=== PATIENT | female | born 1965 | race Caucasian/White ===

== ENCOUNTER 2016-12-25 07:17 | Observation (INO) | payer MEDICAID, OTHER ==
[2016-12-25 07:24] VITALS: O2SAT 100
--- NOTE | 2016-12-25 07:41 | C.PDOC ---
History Of Present Illness 51 y/o female brought in by EMS presents to the ED with complains of recurring dizziness, nausea, vomiting, diarrhea for the past several days. Vomiting increases with dizziness. Pt reports similar prior episodes but this time is "now more frequent than before." Multiple prior ER visits for the same, patient states has not been able to follow up due to lack of insurance. Denies fever, chills. Also complains of epigastric pain and headache. VIA TRANS RECUR DIZZY, NVD X SEV DAYS. SIM TO PRIOR EPISODES BUT "NOW MORE FREQUENT THAN BEFORE". MULT PRIOR ER VISITS FOR SAME, STATES HAS NOT BEEN ABLE TO FU DUE TO LACK OF INSURANCE. NO FEVER. CO EPIG PAIN, [place]. VOMITING WORSE W DIZZINESS. EXAM NONTOXIC MID DIST NO NYSTAGMUS LUNGS CTA B/L NO W/R/R ABD SOFT NT ND NO R/G NEURO INTACT SKIN GOOD TURGOR Time Seen by Provider: 12/25/16 07:36 Chief Complaint (Nursing): Dizziness/Lightheaded History Per: Patient History/Exam Limitations: no limitations Onset/Duration Of Symptoms: Days Current Symptoms Are (Timing): Still Present Fall Associated With With Symptoms: No Severity: Moderate Recent travel outside of the [place]: No - Symptoms Of CVA Recent Head Trauma: No Past Medical History Reviewed: Historical Data, Nursing Documentation, Vital Signs Vital Signs: Last Vital Signs Temp 98 F 12/25/16 07:23 Pulse 84 12/25/16 07:23 Resp 20 12/25/16 07:23 BP 106/77 12/25/16 07:23 Pulse Ox 100 12/25/16 10:02 - Medical History PMH: HTN Surgical History: Hernia Repair Family History: States: Unknown Family Hx - Social History Hx Tobacco Use: Yes (1 ppd) Hx Alcohol Use: No Hx Substance Use: No - Immunization History Hx Tetanus Toxoid Vaccination: No Hx Influenza Vaccination: No Hx Pneumococcal Vaccination: No Review Of Systems Except As Marked, All Systems Reviewed And Found Negative. Constitutional: Negative for: Fever, Chills Gastrointestinal: Positive for: Nausea, Vomiting, Abdominal Pain, Diarrhea Neurological: Positive for: Headache, Dizziness Physical Exam - Physical Exam Appears: Non-toxic, In Acute Distress (mild) Skin: Warm, Dry, No Rash, Other (good turgor) Head: Atraumatic, Normacephalic Eye(s): bilateral: Other (no nystagmus) Oral Mucosa: Moist Neck: Normal, Normal ROM, Supple Chest: Symmetrical Cardiovascular: Rhythm Regular, No Murmur Respiratory: Normal Breath Sounds, No Rales, No Rhonchi, No Wheezing, Other ( CTA bilaterally) Gastrointestinal/Abdominal: Normal Exam, Soft, No Tenderness, No Distention, No Guarding, No Rebound Extremity: Bilateral: Atraumatic Neurological/Psych: Oriented x3, Normal Speech, Normal Cognition, Normal Cranial Nerves, Normal Motor, Normal Sensation ED Course And Treatment - Laboratory Results Result Diagrams: 12/25/16 07:59 12/25/16 07:59 ECG: Interpreted By Me ECG Rhythm: Sinus Rhythm ECG Interpretation: Normal Rate From EC (BPM) O2 Sat by Pulse Oximetry: 100 (room air) Pulse Ox Interpretation: Normal Medical Decision Making Medical Decision Making: Plan: * EKG * labs * meclizine, zofran * IV fluids ED OBSERVATION Discharge: Yes Date of observation admission: 12/25/16 Time of observation admission: 07:30 - Observation admission statement Patient is being placed in observation because:: DIZZY, NVD - Goals of Observation Goals of observation are:: SX IMPROVE - Progress Note Progress Note: 12/25/16 10:18 FEELS BETTER AMBUL WO DIFF. DIZZY RESOLVED. Disposition Counseled Patient/Family Regarding: Studies Performed, Diagnosis, Need For Followup, Rx Given - Disposition Disposition: HOME/ ROUTINE Disposition Time: 10:19 Condition: IMPROVED - Clinical Impression Clinical Impression: Dizziness - Scribe Statement The provider has reviewed the documentation as recorded by the Tucker Soliman Provider Attestation: All medical record entries made by the Tucker were at my direction and personally dictated by me. I have reviewed the chart and agree that the record accurately reflects my personal performance of the history, physical exam, medical decision making, and the department course for this patient. I have also personally directed, reviewed, and agree with the discharge instructions and disposition.
[2016-12-25] MEDS ORDERED: Sodium Chloride 0.9% 500 ML IV ONE (07:42)
[2016-12-25] MEDS ORDERED: Sodium Chloride 0.9% 1,000 ML ONE (08:01)
[2016-12-25 08:08] LABS: BASO % 0.3 % (0.0-2.0); EOS % 0.1 % (0.0-4.0); HEMATOCRIT 41.3 % (34.0-47.0); MEAN CORPUSCULAR HEMOGLOBIN 31.6 pg (27.0-31.0); MEAN CORPUSCULAR HGB CONC 34.2 g/dL (33.0-37.0); MEAN PLATELET VOLUME 7.8 fL (7.2-11.7); MONO # 0.6 K/uL (0.0-0.8); MONO % 4.8 % (0.0-10.0); RED CELL DISTRIBUTION WIDTH 13.2 % (11.5-14.5); WHITE BLOOD COUNT 12.8 K/uL (4.8-10.8)
[2016-12-25 08:09] LABS: MEAN CELL VOLUME 92.6 fL (81.0-99.0)
[2016-12-25 08:27] LABS: CHLORIDE 102 mmol/L (98-107)
[2016-12-25 08:28] LABS: POTASSIUM 3.8 mmol/L (3.6-5.2); SODIUM 137 mmol/L (132-148)
[2016-12-25 08:30] LABS: CARBON DIOXIDE 26 mmol/L (22-30); GFR AFRICAN-AMERICAN > 60
[2016-12-25 08:31] LABS: BLOOD UREA NITROGEN 12 mg/dL (7-17); CALCIUM 8.9 mg/dl (8.6-10.4); GLUCOSE,RANDOM 104 mg/dL (65-105)
[2016-12-25 10:30] VITALS: BP 111/81; PULSE 79; RESP 17; TEMP 98.2
--- NOTE | 2016-12-31 20:50 | CARD ---
APPROVED REPORT EKG Measurement Heart [id number] DE [id number] [id number] <Conclusion> Normal sinus rhythm Moderate voltage criteria for LVH, may be normal variant Borderline ECG
== END 2016-12-25 10:19 | disposition home or self-care (01) ==
LOC: C.ER 07:17 → C.9OBSV 07:30
PROVIDERS: ADMIT Emergency Medicine; ATTEND Emergency Medicine
DX: R42 Dizziness and giddiness (principal); I10 Essential (primary) hypertension; F17.200 Nicotine dependence, unspecified, uncomplicated
CPT/HCPCS: 36415; 80048; 82948; 85025; 96360; 96374; G0378; J2405; J7040

== ENCOUNTER 2017-02-21 17:33 | Emergency (ER) | payer SELFPAY ==
[2017-02-21] MEDS ORDERED: Sodium Chloride 0.9% 1,000 ML IV ONE (18:07)
[2017-02-21 18:39] LABS: BASO % 0.5 % (0.0-2.0); EOS % 0.2 % (0.0-4.0); MONO # 0.5 K/uL (0.0-0.8); NRBC % 0.1 % (0.0-2.0); WHITE BLOOD COUNT 6.4 K/uL (4.8-10.8)
[2017-02-21 18:44] LABS: HEMATOCRIT 38.1 % (34.0-47.0); LYMPH # 2.3 K/uL (1.0-4.3); LYMPH % 36.6 % (20.0-40.0); MEAN CELL VOLUME 93.6 fL (81.0-99.0); MEAN CORPUSCULAR HEMOGLOBIN 32.7 pg (27.0-31.0); MEAN CORPUSCULAR HGB CONC 34.9 g/dL (33.0-37.0); MEAN PLATELET VOLUME 7.5 fL (7.2-11.7); MONO % 7.2 % (0.0-10.0); RED CELL DISTRIBUTION WIDTH 13.3 % (11.5-14.5)
[2017-02-21 18:47] LABS: CHLORIDE 99 mmol/L (98-107); POTASSIUM 3.6 mmol/L (3.6-5.2); SODIUM 138 mmol/L (132-148)
[2017-02-21 18:49] LABS: BILIRUBIN,TOTAL 0.4 mg/dL (0.2-1.3); CARBON DIOXIDE 26 mmol/L (22-30); GFR AFRICAN-AMERICAN > 60
[2017-02-21 18:50] LABS: ALB/GLOB RATIO 1.5 (1.0-2.1); ALKALINE PHOSPHATASE 80 U/L (38-126); ALT/SGPT 23 U/L (9-52); AST/SGOT 19 U/L (14-36); BLOOD UREA NITROGEN 12 mg/dL (7-17); CALCIUM 8.5 mg/dl (8.6-10.4); GLUCOSE,RANDOM 118 mg/dL (65-105); MAGNESIUM 1.5 mg/dL (1.6-2.3); TOTAL PROTEIN 6.3 g/dL (6.3-8.3)
[2017-02-21] MEDS ORDERED: Magnesium Sulfate 1 gm in D5W 1 GM/100 ML BAG IVPB ONE ×2 (18:56→19:10)
[2017-02-21 20:17] VITALS: RESP 14
--- NOTE | 2017-02-21 20:33 | C.PDOC ---
Time Seen by Provider: 02/21/17 17:49 Chief Complaint (Nursing): Headache History Per: Patient, Family Onset/Duration Of Symptoms: Days (1), Gradual Current Symptoms Are (Timing): Still Present Severity: Moderate Quality: "Pain" Associated Symptoms: Photophobia, Blurred Vision, Nausea Additional History Per: Prior Records Past Medical History Reviewed: Historical Data, Nursing Documentation, Vital Signs Vital Signs: Last Vital Signs Temp 98.1 F 02/21/17 17:43 Pulse 101 H 02/21/17 19:45 Resp 14 02/21/17 19:45 BP 93/52 L 02/21/17 19:45 Pulse Ox 97 02/21/17 20:35 - Medical History PMH: HTN Surgical History: Hernia Repair Family History: States: Unknown Family Hx - Social History Hx Tobacco Use: Yes (1 ppd) Hx Alcohol Use: No Hx Substance Use: No - Immunization History Hx Tetanus Toxoid Vaccination: No Hx Influenza Vaccination: No Hx Pneumococcal Vaccination: No Review Of Systems Except As Marked, All Systems Reviewed And Found Negative. Constitutional: Negative for: Fever, Weakness Eyes: Negative for: Pain ENT: Negative for: Nose Congestion Cardiovascular: Positive for: Palpitations. Negative for: Chest Pain Respiratory: Negative for: Shortness of Breath Gastrointestinal: Negative for: Vomiting, Abdominal Pain, Diarrhea Genitourinary: Negative for: Dysuria Musculoskeletal: Negative for: Neck Pain Skin: Negative for: Rash Neurological: Positive for: Headache, Dizziness. Negative for: Weakness, Numbness, Incoordination, Change in Speech, Confusion, Seizures, Altered Mental Status Physical Exam - Physical Exam Appears: Non-toxic, No Acute Distress Skin: Normal Color, Warm, Dry, No Rash Head: Atraumatic, Normacephalic Eye(s): bilateral: PERRL, EOMI Neck: Normal ROM, Supple Cardiovascular: Rhythm Regular Respiratory: Normal Breath Sounds, No Accessory Muscle Use Gastrointestinal/Abdominal: Soft, No Tenderness Back: No CVA Tenderness Extremity: Normal ROM Neurological/Psych: Oriented x3, Normal Speech, Normal Cognition, Normal Cranial Nerves, No Cerebellar Signs, Normal Motor, Normal Sensation ED Course And Treatment - Laboratory Results Result Diagrams: 02/21/17 18:35 02/21/17 18:35 ECG: Interpreted By Me, Viewed By Me ECG Rhythm: Sinus Rhythm, 1st Degree HB, Nonspecific Changes ECG Interpretation: No Acute Changes Rate From EC O2 Sat by Pulse Oximetry: 97 Pulse Ox Interpretation: Normal - CT Scan/US CT head Other Rad Studies (CT/US): Read By Radiologist, Radiology Report Reviewed CT/US Interpretation: Normal head/brain CT. Progress Note: Pt is now asymptomatic and wants to go home. Reassessment Condition: Improved Progress - Interventions Interventions:: Observation, Intravenous fluid - Medications Administered Intravenous: Other (Mg) - Data Reviewed Data Reviewed: Lab, Diagnostic imaging, EKG, Old records - Patient Status Patient status: Completely improved - Continuity of Care Discussed patient case with:: Patient, Family-HIPPA compliant, ED Nurse - Patient Plan Patient Plan: Discharge, F/U with PCP Disposition Counseled Patient/Family Regarding: Studies Performed, Diagnosis, Need For Followup, Rx Given, Smoking Cessation - Disposition Disposition: HOME/ ROUTINE Disposition Time: 20:48 Condition: IMPROVED Additional Instructions: Stop smoking. Follow up with your doctor for further evaluation and treatment. Return to the ER if you develop vomiting, change in vision, worsening of symptoms or if you have any other concerns. Prescriptions: Multivit-Min/Iron/Folic/Lutein [Centrum Silver Women Tablet] 1 each PO DAILY # 30 tablet Instructions: General Headache (ED) Print Language: SAMI - Clinical Impression Clinical Impression: Headache
[2017-02-21 20:56] VITALS: BP 99/66; PULSE 82; TEMP 98.3; O2SAT 100
--- NOTE | 2017-02-22 11:24 | CT ---
PROCEDURE: CT HEAD WITHOUT CONTRAST. HISTORY: Headaches COMPARISON: None available. TECHNIQUE: Axial computed tomography images were obtained through the head/brain without intravenous contrast. Radiation dose: Total exam DLP = 757.43 mGy-cm. This CT exam was performed using one or more of the following dose reduction techniques: Automated exposure control, adjustment of the mA and/or kV according to patient size, and/or use of iterative reconstruction technique. FINDINGS: HEMORRHAGE: No acute parenchymal, subarachnoid or extra-axial hemorrhage. BRAIN: No mass effect or edema. No atrophy or chronic microvascular ischemic changes. VENTRICLES: No evidence of obstructive hydrocephalus CALVARIUM: There are no acute calvarial fractures. PARANASAL SINUSES: Paranasal sinuses well-developed and currently well-aerated. . No significant inflammatory changes. MASTOID AIR CELLS: Mastoid air complexes well-developed and currently well-aerated. . No inflammatory changes. OTHER FINDINGS: None. IMPRESSION: No acute intracranial hemorrhage. Preliminary report provided by overnight radiology service.
--- NOTE | 2017-02-24 16:54 | CARD ---
APPROVED REPORT EKG Measurement Heart [id number] MD 232P57 [id number] <Conclusion> Sinus rhythm with 1st degree AV block Possible Left atrial enlargement Left ventricular hypertrophy Abnormal ECG
== END 2017-02-21 20:58 | disposition home or self-care (01) ==
LOC: C.ER 17:33
DX: R51 Headache (principal)
CPT/HCPCS: 70450; 80053; 83735; 84484; 85025; 93005; 96374; 99285; J3475; J7040

== ENCOUNTER 2018-09-06 15:16 | Emergency (ER) | payer OTHER ==
[2018-09-06] MEDS ORDERED: Sodium Chloride 0.9% 1,000 ML IV ONE (15:45)
--- NOTE | 2018-09-06 15:45 | C.PDOC ---
History Of Present Illness 52 year old female with a PMHx of migraine headaches, presents to the ED complaining of a headache for 3 days. Patient describes having a pounding to pulsating headache of her entire head. States she was taking Tylenol PM without significant relief. Since yesterday, patient developed dizziness, nausea, 1 episode of vomiting, and photophobia. She reports this is typical of her previous migraine episodes. Otherwise she denies any fever, chills, neck stiffness, cough, or other flu-like symptoms. Time Seen by Provider: 09/06/18 15:39 Chief Complaint (Nursing): Dizziness/Lightheaded History Per: Patient History/Exam Limitations: no limitations Onset/Duration Of Symptoms: Days (x 3) Current Symptoms Are (Timing): Still Present Preceeding Symptoms: Known Migraine Symptoms Associated Symptoms: Photophobia, Nausea Past Medical History Reviewed: Historical Data, Nursing Documentation, Vital Signs Vital Signs: Last Vital Signs Temp 99 F 09/06/18 15:21 Pulse 105 H 09/06/18 15:21 Resp 20 09/06/18 15:21 BP 100/64 09/06/18 15:21 Pulse Ox 98 09/06/18 15:21 - Medical History PMH: Depression, HTN, Hypercholesterolemia, Migraine Surgical History: Hernia Repair Family History: States: Unknown Family Hx - Social History Hx Tobacco Use: Yes (1 ppd) Hx Alcohol Use: No Hx Substance Use: No - Immunization History Hx Tetanus Toxoid Vaccination: No Hx Influenza Vaccination: No Hx Pneumococcal Vaccination: No Review Of Systems Except As Marked, All Systems Reviewed And Found Negative. Constitutional: Negative for: Fever, Chills Eyes: Positive for: Other (Photophobia). Negative for: Vision Change ENT: Negative for: Nose Congestion Cardiovascular: Negative for: Chest Pain Respiratory: Negative for: Cough, Shortness of Breath Gastrointestinal: Positive for: Nausea, Vomiting (x1). Negative for: Abdominal Pain, Diarrhea Musculoskeletal: Negative for: Neck Pain Neurological: Positive for: Headache, Dizziness. Negative for: Weakness, Numbness, Change in Speech Physical Exam - Physical Exam Appears: Non-toxic, No Acute Distress Skin: Warm, Dry Head: Atraumatic, Normacephalic Eye(s): bilateral: Normal Inspection (no nystagmus), PERRL, EOMI, Photophobia Nose: Normal Oral Mucosa: Moist Neck: Normal ROM Chest: Symmetrical Cardiovascular: Rhythm Regular, No Murmur Respiratory: Normal Breath Sounds, No Rales, No Rhonchi, No Wheezing Gastrointestinal/Abdominal: Soft, No Tenderness, No Distention Extremity: Bilateral: Atraumatic, Normal Color And Temperature, Normal ROM Pulses: Left Radial: Normal, Right Radial: Normal Neurological/Psych: Oriented x3, Normal Speech, Normal Cranial Nerves, Other (No focal deficits) Gait: Steady ED Course And Treatment O2 Sat by Pulse Oximetry: 98 (RA) Pulse Ox Interpretation: Normal Medical Decision Making Medical Decision Making: Impression: 52 year old with migraine headache Plan: --IV fluids --10 mg IV Reglan --30 mg IV Toradol Progress: On reevaluation, the patient was sitting up comfortably in no distress chatting with visitor at bedside. She reported feeling better. She has no neuro deficits and normal stable vital signs. Patient feels comfortable going home and to be discharged with Rx and follow up with PMD Disposition Counseled Patient/Family Regarding: Diagnosis, Need For Followup, Rx Given - Disposition Referrals: Scarlet Valiente MD [Medical Doctor] - Disposition: HOME/ ROUTINE Disposition Time: 16:51 Condition: STABLE Additional Instructions: Vaya a buckner mdico o la clnica en 2-5 montiel sin falta, para mas evaluacin. [place] los medicamentos kristen indicado. Volver a la shaq de emergencia en cualquier momento si los sntomas persisten o empeoran. Prescriptions: Acetaminophen/Butalbital/Caf [Fioricet] 1 tab PO Q8 PRN #15 tab PRN Reason: Headache Metoclopramide [Reglan] 1 tab PO Q8 PRN #15 tab PRN Reason: Nausea/Vomiting Instructions: Migraine Headache (DC) Forms: [employer] (Citizen Of [place]) Print Language: GHANAIAN - POA Present On Arrival: None - Clinical Impression Clinical Impression: Headache - PA / CARPET CLEANER / Resident Statement MD/DO has reviewed & agrees with the documentation as recorded. - Scribe Statement The provider has reviewed the documentation as recorded by the Scribe Sunitha Carbajal All medical record entries made by the Scribe were at my direction and personally dictated by me. I have reviewed the chart and agree that the record accurately reflects my personal performance of the history, physical exam, medical decision making, and the department course for this patient. I have also personally directed, reviewed, and agree with the discharge instructions and disposition.
[2018-09-06] MEDS ORDERED: Sodium Chloride 0.9% 1,000 ML ONE (15:58)
[2018-09-06 16:59] VITALS: BP 131/79; PULSE 91; RESP 16; TEMP 98.9
[2018-09-06 17:38] VITALS: O2SAT 98
== END 2018-09-06 17:06 | disposition home or self-care (01) ==
LOC: C.ER 15:16
DX: R51 Headache (principal)
CPT/HCPCS: 96361; 96374; 96375; 99285; J1885; J2765; J7030